=== PATIENT | male | born 1950 | race Caucasian/White ===

== ENCOUNTER 2018-04-11 09:24 | Day surgery (SDC) | payer BC ==
[2018-04-10 13:07] VITALS: BMI 30.7
--- NOTE | 2018-04-11 08:59 | CP.SDSHP ---
Same Day Surgery H & P - History Proposed Procedure: colonoscopy Pre-Op Diagnosis: Hx colonic polyps Family Hx of colon carcinoma - Previous Medical/Surgical History Cardiac: Hypertension Endocrine/Metabolic: Diabetes - Allergies Allergies: Allergies No Known Allergies Allergy (Verified 12/18/15 08:16) - Date & Time Date: 04/11/18 Time: 08:58 Short Stay Discharge - Short Stay Discharge Admitting Diagnosis/Reason for Visit: FAMILY HISTORY OF COLON CANCER, CHANGE IN [facility] Disposition: HOME/ ROUTINE
[2018-04-11] MEDS ORDERED: Lactated Ringer's 500 ML IV ONE (11:00)
[2018-04-11] MEDS ORDERED: Propofol 10 mg/ml Inj (20 ML) ONE ×2 (11:05)
[2018-04-11 12:29] VITALS: TEMP 97.3
[2018-04-11 12:36] VITALS: BP 122/75; PULSE 88; RESP 18; O2SAT 98
== END 2018-04-11 12:30 | disposition home or self-care (01) ==
LOC: C.ENDO 09:24
PROVIDERS: ATTEND Colon & Rectal Surgery
DX: Z12.11 Encounter for screening for malignant neoplasm of colon (principal); Z80.0 Family history of malignant neoplasm of digestive organs; K57.30 Diverticulosis of large intestine without perforation or abscess without bleeding; K64.8 Other hemorrhoids
CPT/HCPCS: 45378; 82948; J2001; J2704; J7120

== ENCOUNTER 2018-07-18 12:08 | Inpatient (IN) | payer BC, MEDICARE ==
[2018-07-18 12:18] VITALS: BMI 30.4
--- NOTE | 2018-07-18 12:47 | C.PDOC ---
History Of Present Illness 68 y/o M c PMHx CAD p/w chest pain that began while preparing breakfast this morning associated with diaphoresis. Denies nausea, vomiting, dyspnea. Arrived by EMS, took nitro before their arrival and was given 324 ASA by them prior to ED arrival. Time Seen by Provider: 07/18/18 12:45 Chief Complaint (Nursing): Chest Pain Past Medical History Vital Signs: Last Vital Signs Temp 98.1 F 07/18/18 12:29 Pulse 58 L 07/18/18 12:29 Resp 20 07/18/18 12:29 BP 120/71 07/18/18 12:29 Pulse Ox 95 07/18/18 12:29 - Medical History PMH: Arthritis (GOUT), Colonic Polyps, HTN, Hypercholesterolemia Denies: Chronic Kidney Disease - [employer] Procedures ENDOSC POLYPECTOMY OF LG INTEST (04/16/14) Family History: States: Unknown Family Hx - Social History Hx Alcohol Use: No Hx Substance Use: No - Immunization History Hx Tetanus Toxoid Vaccination: No Hx Influenza Vaccination: Yes Hx Pneumococcal Vaccination: Yes Review Of Systems Except As Marked, All Systems Reviewed And Found Negative. Constitutional: Negative for: Fever Respiratory: Negative for: Shortness of Breath Physical Exam - Physical Exam Additional Physical Exam Comments: Constitutional: No acute distress. Head: Normocephalic. Atraumatic. Eyes: PERRL. ENT: Moist mucous membranes. Neck: Supple. Cardiovascular: Regular rate. Radial pulse 2+ bilaterally. Chest: No tenderness. Respiratory: Clear to auscultation bilaterally. GI: Soft. Nontender. Nondistended. Back: No CVA tenderness. Musculoskeletal: No tenderness or swelling of extremities. Skin: No rash. Neurologic: Alert, no focal deficit. ED Course And Treatment - Laboratory Results Result Diagrams: 07/18/18 12:58 07/18/18 12:58 O2 Sat by Pulse Oximetry: 95 Medical Decision Making Medical Decision Making: EKG Sinus rhythm 60 bpm, no ST elevations. CXR no acute disease. Disposition - Disposition Disposition: HOSPITALIZED Disposition Time: 13:30 Condition: FAIR Forms: [email or web address] (Burmese) - POA Core Measure Indicators: Chest Pain - Clinical Impression Clinical Impression: Chest pain
[2018-07-18 13:05] LABS: BASO % 0.6 % (0.0-2.0); EOS # 0.1 K/uL (0.0-0.7); EOS % 1.5 % (0.0-4.0); LYMPH # 0.7 K/uL (1.0-4.3); LYMPH % 12.1 % (20.0-40.0); MEAN CORPUSCULAR HEMOGLOBIN 28.2 pg (27.0-31.0); MEAN CORPUSCULAR HGB CONC 33.5 g/dL (33.0-37.0); MEAN PLATELET VOLUME 8.4 fL (7.2-11.7); MONO # 0.3 K/uL (0.0-0.8); MONO % 4.8 % (0.0-10.0); NEUT # 4.5 K/uL (1.8-7.0); NRBC % 0.1 % (0.0-2.0); RBC 4.42 Mil/uL (4.40-5.90); RED CELL DISTRIBUTION WIDTH 15.8 % (11.5-14.5)
[2018-07-18 13:13] LABS: HEMOGLOBIN 12.5 g/dL (12.0-18.0); MEAN CELL VOLUME 84.2 fL (80.0-94.0); WHITE BLOOD COUNT 5.6 K/uL (4.8-10.8)
[2018-07-18 13:23] LABS: ALB/GLOB RATIO 1.6 (1.0-2.1); ALBUMIN 4.5 g/dL (3.5-5.0); ALT/SGPT 9 U/L (21-72); AST/SGOT 21 U/L (17-59); BLOOD UREA NITROGEN 26 mg/dL (9-20); CALCIUM 9.9 mg/dl (8.6-10.4); GFR NON-AFRICAN AMERICAN 51; INR 1.1; PROTHROMBIN TIME 12.5 SECONDS (9.7-12.2)
--- NOTE | 2018-07-18 15:37 | RAD ---
Date of service: 07/18/2018 HISTORY: chest pain COMPARISON: No prior. FINDINGS: LUNGS: The lungs are well inflated and clear. PLEURA: No pleural effusions or pneumothorax. CARDIOVASCULAR: There is mild cardiomegaly. No aortic atherosclerotic calcifications present. OSSEOUS STRUCTURES: Within normal limits for the patient's age. VISUALIZED UPPER ABDOMEN: Normal. OTHER FINDINGS: None. IMPRESSION: No active pulmonary disease.
--- NOTE | 2018-07-18 20:00 | CP.PCM.HP ---
Past Patient History - Past Medical History & Family History Past Medical History?: Yes - Past Social History Smoking Status: Never Smoked - CARDIAC Hx Hypercholesterolemia: Yes Hx Hypertension: Yes - PULMONARY Hx Respiratory Disorders: No - NEUROLOGICAL Hx Neurological Disorder: No - HEENT Hx HEENT Problems: No - RENAL Hx Chronic Kidney Disease: No - ENDOCRINE/METABOLIC Hx Endocrine Disorders: Yes Hx Diabetes Mellitus Type 2: Yes - HEMATOLOGICAL/ONCOLOGICAL Hx Blood Disorders: Yes Other/Comment: LOW PLATELETS - INTEGUMENTARY Hx Dermatological Problems: No - MUSCULOSKELETAL/RHEUMATOLOGICAL Hx Arthritis: Yes (GOUT) - GASTROINTESTINAL Hx Gastrointestinal Disorders: Yes - GENITOURINARY/GYNECOLOGICAL Hx Genitourinary Disorders: Yes Hx Prostate Problems: Yes (ENLARGED) - PSYCHIATRIC Hx Substance Use: No - SURGICAL HISTORY Hx Surgeries: Yes - ANESTHESIA Hx Anesthesia: Yes Hx Anesthesia Reactions: No Hx Malignant Hyperthermia: No Meds Allergies/Adverse Reactions: Allergies Allergy/AdvReac Type Severity Reaction Status Date / Time No Known Allergies Allergy Verified 07/18/18 12:15 Physical Exam - Constitutional Appears: Well - Head Exam Head Exam: ATRAUMATIC, NORMAL INSPECTION, NORMOCEPHALIC - Eye Exam Eye Exam: EOMI, Normal appearance, PERRL Pupil Exam: NORMAL ACCOMODATION, PERRL - ENT Exam ENT Exam: Mucous Membranes Moist, Normal Exam - Neck Exam Neck exam: Positive for: Normal Inspection - Respiratory Exam Respiratory Exam: Decreased Breath Sounds - Cardiovascular Exam Cardiovascular Exam: REGULAR RHYTHM, +S1, +S2 - GI/Abdominal Exam GI & Abdominal Exam: Diminished Bowel Sounds, Soft - Rectal Exam Rectal Exam: Deferred - Neurological Exam Neurological exam: Oriented x3 Results - Vital Signs Recent Vital Signs: Last Vital Signs Temp 97.6 F 07/18/18 14:45 Pulse 70 07/18/18 14:45 Resp 20 07/18/18 14:45 BP 124/73 07/18/18 14:45 Pulse Ox 100 07/18/18 16:00 - Labs Result Diagrams: 07/18/18 12:58 07/18/18 12:58 Labs: Laboratory Results - last 24 hr 07/18/18 07/18/18 07/18/18 12:58 12:58 12:58 WBC 5.6 D RBC 4.42 Hgb 12.5 D Hct 37.3 MCV 84.2 D MCH 28.2 MCHC 33.5 RDW 15.8 H Plt Count 88 L MPV 8.4 Neut % (Auto) 81.0 H Lymph % (Auto) 12.1 L [place] % (Auto) 4.8 Eos % (Auto) 1.5 Baso % (Auto) 0.6 Neut # (Auto) 4.5 Lymph # (Auto) 0.7 L [place] # (Auto) 0.3 Eos # (Auto) 0.1 Baso # (Auto) 0.0 Differential Comment PT 12.5 H INR 1.1 APTT 38 H Sodium 143 Potassium 4.9 Chloride 107 Carbon Dioxide 26 Anion Gap 14 BUN 26 H Creatinine 1.4 Est GFR ( Amer) > 60 Est GFR (Non-Af Amer) 51 POC Glucose (mg/dL) Random Glucose 189 H D Calcium 9.9 Total Bilirubin 0.3 AST 21 ALT 9 L D Alkaline Phosphatase 68 Total Creatine Kinase Troponin I < 0.0120 Total Protein 7.3 Albumin 4.5 Globulin 2.8 Albumin/Globulin Ratio 1.6 07/18/18 07/18/18 16:29 19:33 WBC RBC Hgb Hct MCV MCH MCHC RDW Plt Count MPV Neut % (Auto) Lymph % (Auto) [place] % (Auto) Eos % (Auto) Baso % (Auto) Neut # (Auto) Lymph # (Auto) [place] # (Auto) Eos # (Auto) Baso # (Auto) Differential Comment PT INR APTT Sodium Potassium Chloride Carbon Dioxide Anion Gap BUN Creatinine Est GFR ( Amer) Est GFR (Non-Af Amer) POC Glucose (mg/dL) 117 H Random Glucose Calcium Total Bilirubin AST ALT Alkaline Phosphatase Total Creatine Kinase 227 H Troponin I Total Protein Albumin Globulin Albumin/Globulin Ratio
[2018-07-18 20:13] LABS: CK-MB 19.4 ng/mL (0.0-3.38); TROPONIN I 2.57 ng/mL (0.00-0.120)
[2018-07-18] MEDS: (Novolog) Insulin Aspart, Recombinant 100 u/ml 10 ml vial SC SCH (21:49)
[2018-07-19 03:59] LABS: CK-MB 32.8 ng/mL (0.0-3.38); TROPONIN I 17.6 ng/mL (0.00-0.120)
[2018-07-19] MEDS: Enoxaparin 100 mg Syringe SC SCH ×2 (04:47→09:50)
[2018-07-19] MEDS: Metoprolol Succinate 25 mg XL Tab PO SCH ×2 (07:45→09:50)
[2018-07-19] MEDS: (Novolog) Insulin Aspart, Recombinant 100 u/ml 10 ml vial SC SCH ×4 (07:55→23:10)
[2018-07-19] MEDS: Omega-3-Acid Ethyl Esters 1 GM Cap PO SCH ×3 (09:50→18:49)
[2018-07-19] MEDS: Pantoprazole 40 mg EC Tab PO SCH (09:50)
[2018-07-19] MEDS ORDERED: Enoxaparin 40 mg Syringe SC SCH (10:00)
[2018-07-19] MEDS ORDERED: Ergocalciferol 50,000 Intl Units Cap PO SCH (10:00)
--- NOTE | 2018-07-19 10:47 | CP.PCM.CON ---
History of Present Illness - History of Present Illness History of Present Illness: Consultation for NSTEMI Mr. Kay is a 68-year-old male with past medical history significant for hypertension diabetes mellitus dyslipidemia who had recently undergone revascularization of the right coronary artery and [facility] by Dr. Edy Merritt he was scheduled to undergo a staged intervention on August 01 but yesterday he started having chest pain substernal pressure-like sensation and therefore presented to the emergency room at [facility] he was ruled in for non-ST elevation [place] acute coronary syndrome with positive cardiac enzymes and therefore was transferred over to [place] for possible catheterization and intervention cardiac catheterization revealed a ruptured plaque in the RCA and between the 2 stents that were recently placed at [place] he underwent successful angioplasty and stenting of the mid RCA he also had high-grade lesions in the left anterior descending artery in both the proximal and mid segments after discussing with the patient he wanted to proceed with endovascular ablation of the LAD which was a non-culprit vessel he successfully underwent staged intervention of the proximal and mid LAD with 2 drug-eluting stents the procedure was done via the left radial arterial approach patient was already on Brilinta and therefore did not require reloading. His home medication include Benicar 40 mg daily terazosin 2 mg daily metformin thousand again daily gemfibrozil 600 mg tablet allopurinol 300 mg a day fish oil 1200 mg / 360 mg vitamin B12 vitamin D3 aspirin 81 Lipitor atorvastatin 10 mg metoprolol succinate 50 mg nitroglycerin sublingual 0.4 as needed. Social history squeaks smoking 4 years ago prior to that had [id number] history of smoking denies any alcohol or illicit drug use family history contribute significant for premature CAD and hypertension Review of Systems - Review of Systems Systems not reviewed;Unavailable: Acuity of Condition - Constitutional Constitutional: As Per HPI - EENT Eyes: As Per HPI Ears: As Per HPI Nose/Mouth/Throat: As Per HPI - Cardiovascular Cardiovascular: As Per HPI - Respiratory Respiratory: As Per HPI - Gastrointestinal Gastrointestinal: As Per HPI - Genitourinary Genitourinary: As Per HPI - Reproductive: Male Reproductive:Male: As Per HPI - Musculoskeletal Musculoskeletal: As Per HPI - Integumentary Integumentary: As Per HPI - Neurological Neurological: As Per HPI - Psychiatric Psychiatric: As Per HPI - Endocrine Endocrine: As Per HPI - Hematologic/Lymphatic Hematologic: As Per HPI Past Patient History - Past Medical History & Family History Past Medical History?: Yes - Past Social History Smoking Status: Never Smoked - CARDIAC Hx Hypercholesterolemia: Yes Hx Hypertension: Yes - PULMONARY Hx Respiratory Disorders: No - NEUROLOGICAL Hx Neurological Disorder: No - HEENT Hx HEENT Problems: No - RENAL Hx Chronic Kidney Disease: No - ENDOCRINE/METABOLIC Hx Endocrine Disorders: Yes Hx Diabetes Mellitus Type 2: Yes - HEMATOLOGICAL/ONCOLOGICAL Hx Blood Disorders: Yes Other/Comment: LOW PLATELETS - INTEGUMENTARY Hx Dermatological Problems: No - MUSCULOSKELETAL/RHEUMATOLOGICAL Hx Arthritis: Yes (GOUT) - GASTROINTESTINAL Hx Gastrointestinal Disorders: Yes - GENITOURINARY/GYNECOLOGICAL Hx Genitourinary Disorders: Yes Hx Prostate Problems: Yes (ENLARGED) - PSYCHIATRIC Hx Substance Use: No - SURGICAL HISTORY Hx Surgeries: Yes - ANESTHESIA Hx Anesthesia: Yes Hx Anesthesia Reactions: No Hx Malignant Hyperthermia: No Meds Allergies/Adverse Reactions: Allergies Allergy/AdvReac Type Severity Reaction Status Date / Time No Known Allergies Allergy Verified 07/18/18 12:15 - Medications Medications: Current Medications Allopurinol (Zyloprim) 300 mg PO DAILY [facility] Last Admin: 07/19/18 09:49 Dose: Not Given Aspirin (Ecotrin) 81 mg PO DAILY [facility] Last Admin: 07/19/18 09:51 Dose: Not Given Cyanocobalamin (Vitamin B12 1000 Mcg Tab) 1,000 mcg PO DAILY [facility] Last Admin: 07/19/18 09:49 Dose: Not Given Enoxaparin Sodium (Lovenox) 90 mg SC Q12 [facility] Last Admin: 07/19/18 09:50 Dose: Not Given Ergocalciferol (Drisdol 50,000 Intl Units Cap) 1,000 cap PO QWK [facility] Last Admin: 07/19/18 09:51 Dose: Not Given Hydrochlorothiazide (Hydrodiuril) 25 mg PO DAILY [facility] Last Admin: 07/19/18 09:51 Dose: Not Given Insulin Aspart (Novolog) 0 unit SC ACHS [facility]; Protocol Last Admin: 07/19/18 07:55 Dose: Not Given Losartan Potassium (Cozaar) 100 mg PO DAILY [facility] Last Admin: 07/19/18 09:51 Dose: Not Given Metformin HCl (Glucophage Xr) 1,000 mg PO ACBD [facility] Last Admin: 07/19/18 07:54 Dose: Not Given Metoprolol Succinate (Toprol Xl) 25 mg PO DAILY [facility] Last Admin: 07/19/18 09:50 Dose: Not Given Nitroglycerin (Nitrostat Sl Tab) 0.4 mg SL PRN [facility] Last Admin: 07/18/18 20:29 Dose: 0.4 mg [id number] Ethyl Esters (Lovaza) 1 gm PO TID [facility] Last Admin: 07/19/18 09:50 Dose: Not Given Pantoprazole Sodium (Protonix Ec Tab) 40 mg PO DAILY [facility] Last Admin: 07/19/18 09:50 Dose: Not Given Rosuvastatin Calcium (Crestor) 5 mg PO HS [facility] Last Admin: 07/18/18 22:33 Dose: 5 mg Terazosin HCl (Hytrin) 2 mg PO DAILY [facility] Last Admin: 07/19/18 09:50 Dose: Not Given Terazosin HCl (Hytrin) 1 mg PO [facility] Ticagrelor (Brilinta) 90 mg PO BID [facility] Last Admin: 07/19/18 09:51 Dose: Not Given Physical Exam - Constitutional Appears: Well - Head Exam Head Exam: ATRAUMATIC, NORMAL INSPECTION, NORMOCEPHALIC - Eye Exam Eye Exam: EOMI, Normal appearance, PERRL Pupil Exam: NORMAL ACCOMODATION, PERRL - ENT Exam ENT Exam: Mucous Membranes Moist, Normal Exam - Neck Exam Neck exam: Positive for: Normal Inspection - Respiratory Exam Respiratory Exam: Clear to Auscultation Bilateral, NORMAL BREATHING PATTERN - Cardiovascular Exam Cardiovascular Exam: REGULAR RHYTHM - GI/Abdominal Exam GI & Abdominal Exam: Normal Bowel Sounds, Soft. absent: Tenderness - Extremities Exam Extremities exam: Positive for: normal inspection - Back Exam Back exam: NORMAL INSPECTION - Neurological Exam Neurological exam: Alert, CN II-XII Intact, Normal Gait, Oriented x3, Reflexes Normal - Psychiatric Exam Psychiatric exam: Normal Affect, Normal Mood - Skin Skin Exam: Dry, Intact, Normal Color, Warm Results - Vital Signs Recent Vital Signs: Last Vital Signs Temp 98.2 F 07/19/18 07:32 Pulse 75 07/19/18 07:32 Resp 20 07/19/18 07:32 BP 154/92 H 07/19/18 07:32 Pulse Ox 98 07/19/18 07:32 - Labs Result Diagrams: 07/18/18 12:58 07/18/18 12:58 Labs: Laboratory Results - last 24 hr 0407/18/18 07/18/18 12:58 12:58 12:58 WBC 5.6 D RBC 4.42 Hgb 12.5 D Hct 37.3 MCV 84.2 D MCH 28.2 MCHC 33.5 RDW 15.8 H Plt Count 88 L MPV 8.4 Neut % (Auto) 81.0 H Lymph % (Auto) 12.1 L [place] % (Auto) 4.8 Eos % (Auto) 1.5 Baso % (Auto) 0.6 Neut # (Auto) 4.5 Lymph # (Auto) 0.7 L [place] # (Auto) 0.3 Eos # (Auto) 0.1 Baso # (Auto) 0.0 Differential Comment PT 12.5 H INR 1.1 APTT 38 H Sodium 143 Potassium 4.9 Chloride 107 Carbon Dioxide 26 Anion Gap 14 BUN 26 H Creatinine 1.4 Est GFR ( Amer) > 60 Est GFR (Non-Af Amer) 51 POC Glucose (mg/dL) Random Glucose 189 H D Calcium 9.9 Total Bilirubin 0.3 AST 21 ALT 9 L D Alkaline Phosphatase 68 Total Creatine Kinase CK-MB (Mass) Troponin I < 0.0120 Total Protein 7.3 Albumin 4.5 Globulin 2.8 Albumin/Globulin Ratio 1.6 07/18/18 07/18/18 07/19/18 16:29 19:33 03:00 WBC RBC Hgb Hct MCV MCH MCHC RDW Plt Count MPV Neut % (Auto) Lymph % (Auto) [place] % (Auto) Eos % (Auto) Baso % (Auto) Neut # (Auto) Lymph # (Auto) [place] # (Auto) Eos # (Auto) Baso # (Auto) Differential Comment PT INR APTT Sodium Potassium Chloride Carbon Dioxide Anion Gap BUN Creatinine Est GFR ( Amer) Est GFR (Non-Af Amer) POC Glucose (mg/dL) 117 H Random Glucose Calcium Total Bilirubin AST ALT Alkaline Phosphatase Total Creatine Kinase 227 H 397 H CK-MB (Mass) 19.4 H 32.8 H Troponin I 2.5700 H* 17.6000 H* Total Protein Albumin Globulin Albumin/Globulin Ratio Assessment & Plan (1) NSTEMI (non-ST elevated myocardial infarction) Assessment and Plan: s/p cardiac cath with pci of RCA and LAD RCA PCI - mid segment with XIOMARA x 1 LAD PCI - proximal and mid LAD with XIOMARA x 2 cont asa and brilinta cont toprol xl 50mg po daily cont benicar 40mg cont lipitor ( increase dose to 80mg ) add zetia dc gemfibrizol patient can be discharged home in am PRU was 94 ( therapeutic on platelet activity ) Status: Acute (2) HTN (hypertension) Status: Acute (3) Dyslipidemia Status: Acute
--- NOTE | 2018-07-19 10:54 | CP.PCM.PN ---
Subjective - Date & Time of Evaluation Date of Evaluation: 07/19/18 - Subjective Subjective: cardiac enzyme postives getting worse seen by dr. khoury Objective - Vital Signs/Intake and Output Vital Signs (last 24 hours): Temp Pulse Resp BP Pulse Ox 98.2 F 75 20 154/92 H 98 07/19/18 07:32 07/19/18 07:32 07/19/18 07:32 07/19/18 07:32 07/19/18 07:32 - Medications Medications: Current Medications Allopurinol (Zyloprim) 300 mg PO DAILY [facility] Last Admin: 07/19/18 09:49 Dose: Not Given Aspirin (Ecotrin) 81 mg PO DAILY [facility] Last Admin: 07/19/18 09:51 Dose: Not Given Cyanocobalamin (Vitamin B12 1000 Mcg Tab) 1,000 mcg PO DAILY [facility] Last Admin: 07/19/18 09:49 Dose: Not Given Ergocalciferol (Drisdol 50,000 Intl Units Cap) 1,000 cap PO QWK [facility] Last Admin: 07/19/18 09:51 Dose: Not Given Insulin Aspart (Novolog) 0 unit SC ACHS [facility]; Protocol Last Admin: 07/19/18 07:55 Dose: Not Given Losartan Potassium (Cozaar) 100 mg PO DAILY [facility] Last Admin: 07/19/18 09:51 Dose: Not Given Metformin HCl (Glucophage Xr) 1,000 mg PO ACBD [facility] Last Admin: 07/19/18 07:54 Dose: Not Given Metoprolol Succinate (Toprol Xl) 50 mg PO DAILY [facility] Nitroglycerin (Nitrostat Sl Tab) 0.4 mg SL PRN [facility] Last Admin: 07/18/18 20:29 Dose: 0.4 mg [id number] Ethyl Esters (Lovaza) 1 gm PO TID [facility] Last Admin: 07/19/18 09:50 Dose: Not Given Pantoprazole Sodium (Protonix Ec Tab) 40 mg PO DAILY [facility] Last Admin: 07/19/18 09:50 Dose: Not Given Rosuvastatin Calcium (Crestor) 40 mg PO HS [facility] Terazosin HCl (Hytrin) 2 mg PO DAILY [facility] Last Admin: 07/19/18 09:50 Dose: Not Given Terazosin HCl (Hytrin) 1 mg PO HS [facility] Ticagrelor (Brilinta) 90 mg PO BID [facility] Last Admin: 07/19/18 09:51 Dose: Not Given - Labs Labs: 07/18/18 12:58 07/18/18 12:58 PT 12.5 SECONDS (9.7-12.2) H 07/18/18 12:58 INR 1.1 07/18/18 12:58 APTT 38 SECONDS (21-34) H 07/18/18 12:58 - Constitutional Appears: Well - Head Exam Head Exam: ATRAUMATIC, NORMAL INSPECTION, NORMOCEPHALIC - Eye Exam Eye Exam: EOMI, Normal appearance, PERRL Pupil Exam: NORMAL ACCOMODATION, PERRL - ENT Exam ENT Exam: Mucous Membranes Moist, Normal Exam - Neck Exam Neck Exam: Full ROM, Normal Inspection. absent: Lymphadenopathy - Respiratory Exam Respiratory Exam: Decreased Breath Sounds - Cardiovascular Exam Cardiovascular Exam: REGULAR RHYTHM, +S1, +S2 - GI/Abdominal Exam GI & Abdominal Exam: Soft, Diminished Bowel Sounds - Rectal Exam Rectal Exam: Deferred - Neurological Exam Neurological Exam: Oriented x3 Assessment and Plan - Assessment and Plan (Free Text) Plan: at one point patient decided to discharge today as part of dr. khoury's note written yesterday spoke to dr. khoury who claims to keep patient here today s/p patient came back from [place] after intervention done patient understood family sitting at bedside discussed about possible rupture discussed case with heart doctor medications reviewed labs reviewed vitals reviewed rory villareal ecochristiane glucophage hytrin lovaza nitrostat novolog protonix ec tab toprol xl zyloprim s/p cardiac cath with pci of RCA and LAD RCA PCI - mid segment with XIOMARA x 1 LAD PCI - proximal and mid LAD with XIOMARA x 2 cont asa and brilinta cont toprol xl 50mg po daily cont benicar 40mg cont lipitor ( increase dose to 80mg ) add zetia dc gemfibrizol patient can be discharged home in am asper dr. khoury whose note is appreciated PRU was 94 ( therapeutic on platelet activity )
[2018-07-19 20:19] LABS: CK-MB 13.2 ng/mL (0.0-3.38); TROPONIN I 6.55 ng/mL (0.00-0.120)
[2018-07-20] MEDS: (Novolog) Insulin Aspart, Recombinant 100 u/ml 10 ml vial SC SCH ×3 (07:48→21:27)
[2018-07-20] MEDS: Metoprolol Succinate 50 mg XL Tab PO SCH (10:22)
[2018-07-20] MEDS: Pantoprazole 40 mg EC Tab PO SCH (10:23)
[2018-07-20] MEDS: Omega-3-Acid Ethyl Esters 1 GM Cap PO SCH ×3 (10:23→17:36)
[2018-07-20 17:05] VITALS: RESP 20
[2018-07-21] MEDS: (Novolog) Insulin Aspart, Recombinant 100 u/ml 10 ml vial SC SCH ×4 (07:49→22:30)
[2018-07-21] MEDS: Omega-3-Acid Ethyl Esters 1 GM Cap PO SCH ×3 (10:22→18:09)
[2018-07-21] MEDS: Metoprolol Succinate 50 mg XL Tab PO SCH (10:22)
[2018-07-21] MEDS: Pantoprazole 40 mg EC Tab PO SCH (10:22)
--- NOTE | 2018-07-21 11:01 | CP.PCM.PN ---
Subjective - Date & Time of Evaluation Date of Evaluation: 07/21/18 Time of Evaluation: 10:35 - Subjective Subjective: Patient seen today denies any headache, sob, c/o chest tightness in the mid sternal area, radiated to back started 30 mintus ago and lasted for 1-2 minuts and symptoms resolved now , denies any diaphoresis , N/V associated with chest tightness vss- stable will do troponin x 1 stat and ekg and discuss with Dr. Lopes troponin trending down - 3.4<6.5<17.6 labs reviewed- stable Objective - Vital Signs/Intake and Output Vital Signs (last 24 hours): Temp Pulse Resp BP Pulse Ox 98.1 F 84 20 164/87 H 98 07/21/18 07:00 07/21/18 10:23 07/21/18 07:00 07/21/18 10:23 07/21/18 08:00 Intake and Output: 07/21/18 07/21/18 06:59 18:59 Intake Total 650 Balance 650 - Medications Medications: Current Medications Allopurinol (Zyloprim) 300 mg PO DAILY [facility] Last Admin: 07/21/18 10:21 Dose: 300 mg Aspirin (Ecotrin) 81 mg PO DAILY [facility] Last Admin: 07/21/18 10:22 Dose: 81 mg Cyanocobalamin (Vitamin B12 1000 Mcg Tab) 1,000 mcg PO DAILY [facility] Last Admin: 07/21/18 10:21 Dose: 1,000 mcg Ergocalciferol (Drisdol 50,000 Intl Units Cap) 1,000 cap PO QWK [facility] Last Admin: 07/19/18 09:51 Dose: Not Given Insulin Aspart (Novolog) 0 unit SC ACHS [facility]; Protocol Last Admin: 07/21/18 07:49 Dose: Not Given Losartan Potassium (Cozaar) 100 mg PO DAILY [facility] Last Admin: 07/21/18 10:22 Dose: 100 mg Metformin HCl (Glucophage Xr) 1,000 mg PO ACBD [facility] Last Admin: 07/21/18 08:07 Dose: Not Given Metoprolol Succinate (Toprol Xl) 50 mg PO DAILY [facility] Last Admin: 07/21/18 10:22 Dose: 50 mg Nitroglycerin (Nitrostat Sl Tab) 0.4 mg SL PRN [facility] Last Admin: 07/18/18 20:29 Dose: 0.4 mg [id number] Ethyl Esters (Lovaza) 1 gm PO TID [facility] Last Admin: 07/21/18 10:22 Dose: 1 gm Pantoprazole Sodium (Protonix Ec Tab) 40 mg PO DAILY [facility] Last Admin: 07/21/18 10:22 Dose: 40 mg Rosuvastatin Calcium (Crestor) 40 mg PO HS [facility] Last Admin: 07/20/18 21:20 Dose: 40 mg Terazosin HCl (Hytrin) 1 mg PO HS [facility] Last Admin: 07/20/18 21:20 Dose: 1 mg Terazosin HCl (Hytrin) 2 mg PO DAILY [facility] Last Admin: 07/21/18 10:22 Dose: 2 mg Ticagrelor (Brilinta) 90 mg PO BID [facility] Last Admin: 07/21/18 10:22 Dose: 90 mg - Labs Labs: 07/18/18 12:58 07/18/18 12:58 PT 12.5 SECONDS (9.7-12.2) H 07/18/18 12:58 INR 1.1 07/18/18 12:58 APTT 38 SECONDS (21-34) H 07/18/18 12:58 Assessment and Plan - Assessment and Plan (Free Text) Assessment: A/P 68-year-old male with past medical history for hypertension diabetes mellitus dyslipidemia who had recently undergone revascularization of the right coronary artery and [facility] by Dr. Edy Merritt he was scheduled to undergo a staged intervention on August 01 presented to the ED with chest pain in the substernal area associated with diaphoresis and admitted with NSTEMI and acute coronary syndrome s/p ADJUNCT FACULTY with drug eluting stent by Dr. Lopes on 07/19/18 troponin trending down -3.4<6.5<17.[address] Antoine. EKG - reviewed by Dr. Antoine cleared patient for discharge home D/w Dr. Lopes with troponin level done this am , EKG done this am and events this am about 2 minuts chest tightens recommends Dr. Sears to see the patient before discharge D/w Dr. Sears will see patient this pm plan discussed with patient in details will monitor patient on tele for 24 hrs and repeat troponin and EKG IN AM
[2018-07-21 13:38] LABS: BLOOD UREA NITROGEN 29 mg/dL (9-20); CALCIUM 9.6 mg/dl (8.6-10.4); GFR NON-AFRICAN AMERICAN 55
--- NOTE | 2018-07-21 14:50 | CP.PCM.PN ---
Subjective - Date & Time of Evaluation Date of Evaluation: 07/21/18 - Subjective Subjective: patient examined today c/o chest tightness for 2 min earlier s/p ekg which revelas no new changes d/w dr mcelroy pt for discharge today no nausea no vomiting no fever no dizziness no shortness of breath no diarrhea Objective - Vital Signs/Intake and Output Vital Signs (last 24 hours): Temp Pulse Resp BP Pulse Ox 98.1 F 84 20 164/87 H 98 07/21/18 07:00 07/21/18 10:23 07/21/18 07:00 07/21/18 10:23 07/21/18 08:00 Intake and Output: 07/21/18 07/21/18 06:59 18:59 Intake Total 650 Balance 650 - Medications Medications: Current Medications Allopurinol (Zyloprim) 300 mg PO DAILY [facility] Last Admin: 07/21/18 10:21 Dose: 300 mg Aspirin (Ecotrin) 81 mg PO DAILY [facility] Last Admin: 07/21/18 10:22 Dose: 81 mg Cyanocobalamin (Vitamin B12 1000 Mcg Tab) 1,000 mcg PO DAILY [facility] Last Admin: 07/21/18 10:21 Dose: 1,000 mcg Ergocalciferol (Drisdol 50,000 Intl Units Cap) 1,000 cap PO QWK [facility] Last Admin: 07/19/18 09:51 Dose: Not Given Insulin Aspart (Novolog) 0 unit SC [facility]; Protocol Last Admin: 07/21/18 11:21 Dose: Not Given Losartan Potassium (Cozaar) 100 mg PO DAILY [facility] Last Admin: 07/21/18 10:22 Dose: 100 mg Metformin HCl (Glucophage Xr) 1,000 mg PO ACBD [facility] Last Admin: 07/21/18 08:07 Dose: Not Given Metoprolol Succinate (Toprol Xl) 50 mg PO DAILY [facility] Last Admin: 07/21/18 10:22 Dose: 50 mg Nitroglycerin (Nitrostat Sl Tab) 0.4 mg SL PRN [facility] Last Admin: 07/18/18 20:29 Dose: 0.4 mg Alqpr-1-Jldl Ethyl Esters (Lovaza) 1 gm PO TID [facility] Last Admin: 07/21/18 14:03 Dose: 1 gm Pantoprazole Sodium (Protonix Ec Tab) 40 mg PO DAILY [facility] Last Admin: 07/21/18 10:22 Dose: 40 mg Rosuvastatin Calcium (Crestor) 40 mg PO HS [facility] Last Admin: 07/20/18 21:20 Dose: 40 mg Terazosin HCl (Hytrin) 1 mg PO HS [facility] Last Admin: 07/20/18 21:20 Dose: 1 mg Terazosin HCl (Hytrin) 2 mg PO DAILY [facility] Last Admin: 07/21/18 10:22 Dose: 2 mg Ticagrelor (Brilinta) 90 mg PO BID [facility] Last Admin: 07/21/18 10:22 Dose: 90 mg - Labs Labs: 07/18/18 12:58 07/21/18 11:25 PT 12.5 SECONDS (9.7-12.2) H 07/18/18 12:58 INR 1.1 07/18/18 12:58 APTT 38 SECONDS (21-34) H 07/18/18 12:58 - Constitutional Appears: Well - Head Exam Head Exam: ATRAUMATIC, NORMAL INSPECTION, NORMOCEPHALIC - Eye Exam Eye Exam: EOMI, Normal appearance, PERRL Pupil Exam: NORMAL ACCOMODATION, PERRL - ENT Exam ENT Exam: Mucous Membranes Moist, Normal Exam - Neck Exam Neck Exam: Full ROM, Normal Inspection. absent: Lymphadenopathy - Respiratory Exam Respiratory Exam: Decreased Breath Sounds - Cardiovascular Exam Cardiovascular Exam: REGULAR RHYTHM, +S2 - GI/Abdominal Exam GI & Abdominal Exam: Diminished Bowel Sounds - Rectal Exam Rectal Exam: Deferred - Neurological Exam Neurological Exam: Oriented x3 Assessment and Plan - Assessment and Plan (Free Text) Plan: medications reviewed vitals reviewed labs reviewed rory villareal ecochristiane glucophage hytrin lovaza nitrostat novolog protonix ec tab toprol xl zyloprim Discharge was hold as patient had recurrent chest pains status post RCA and LAD intervention done by the practice physician Strip Polisher requested another practice physician to see the patient's another practice physician evaluation is pending The EKG it does not reveal any changes Discharge post second opinion from the practice physician Medication already discussed with the staff for possible discharge I also spoke to Dr. Lopes and with pt at length earlier with the patient also pt with mod to hgih complexity of care
[2018-07-22 07:48] VITALS: BP 154/87; TEMP 98.1; O2SAT 96
[2018-07-22 07:52] VITALS: PULSE 81
--- NOTE | 2018-07-22 08:33 | CP.PCM.PN ---
Subjective - Date & Time of Evaluation Date of Evaluation: 07/21/18 Time of Evaluation: 22:10 - Subjective Subjective: Consultation requested if the patient cleared for discharge from cardiac point of view 68M s/p RCA and LAD intervention on 07/19/18 Episode of chest pain with no new EKG changes On interview patient currently denies chest pain and dyspnea Recurrent ischemia unlikely but recommend repeat Troponin and EKG in am prior to decision making for discharge Continue ASA, Brilinta, statins and B blockers Review Of Systems Except As Marked, All Systems Reviewed And Found Negative. Constitutional: Negative for: Fever Respiratory: Negative for: Shortness of Breath Physical Exam - Physical Exam Additional Physical Exam Comments: Constitutional: No acute distress. Head: Normocephalic. Atraumatic. Eyes: PERRL. ENT: Moist mucous membranes. Neck: Supple. Cardiovascular: Regular rate. Radial pulse 2+ bilaterally. Chest: No tenderness. Respiratory: Clear to auscultation bilaterally. GI: Soft. Nontender. Nondistended. Back: No CVA tenderness. Musculoskeletal: No tenderness or swelling of extremities. Skin: No rash. Neurologic: Alert, no focal deficit. Objective - Vital Signs/Intake and Output Vital Signs (last 24 hours): Temp Pulse Resp BP Pulse Ox 98.1 F 81 20 154/87 H 96 07/22/18 07:00 07/22/18 07:43 07/22/18 07:00 07/22/18 07:00 07/22/18 07:00 Intake and Output: 07/22/18 07/22/18 06:59 18:59 Intake Total 400 Balance 400 - Medications Medications: Current Medications Allopurinol (Zyloprim) 300 mg PO DAILY [facility] Last Admin: 07/21/18 10:21 Dose: 300 mg Aspirin (Ecotrin) 81 mg PO DAILY [facility] Last Admin: 07/21/18 10:22 Dose: 81 mg Cyanocobalamin (Vitamin B12 1000 Mcg Tab) 1,000 mcg PO DAILY [facility] Last Admin: 07/21/18 10:21 Dose: 1,000 mcg Ergocalciferol (Drisdol 50,000 Intl Units Cap) 1,000 cap PO QWK [facility] Last Admin: 07/19/18 09:51 Dose: Not Given Insulin Aspart (Novolog) 0 unit SC [facility]; Protocol Last Admin: 04/15/19 22:30 Dose: Not Given Losartan Potassium (Cozaar) 100 mg PO DAILY [facility] Last Admin: 07/21/18 10:22 Dose: 100 mg Metformin HCl (Glucophage Xr) 1,000 mg PO ACBD [facility] Last Admin: 07/21/18 17:30 Dose: 1,000 mg Metoprolol Succinate (Toprol Xl) 50 mg PO DAILY [facility] Last Admin: 07/21/18 10:22 Dose: 50 mg Nitroglycerin (Nitrostat Sl Tab) 0.4 mg SL PRN [facility] Last Admin: 07/18/18 20:29 Dose: 0.4 mg Qylxy-2-Hhyf Ethyl Esters (Lovaza) 1 gm PO TID [facility] Last Admin: 07/21/18 18:09 Dose: 1 gm Pantoprazole Sodium (Protonix Ec Tab) 40 mg PO DAILY [facility] Last Admin: 07/21/18 10:22 Dose: 40 mg Rosuvastatin Calcium (Crestor) 40 mg PO HS [facility] Last Admin: 07/21/18 23:04 Dose: 40 mg Terazosin HCl (Hytrin) 1 mg PO HS [facility] Last Admin: 07/21/18 23:04 Dose: 1 mg Terazosin HCl (Hytrin) 2 mg PO DAILY [facility] Last Admin: 07/21/18 10:22 Dose: 2 mg Ticagrelor (Brilinta) 90 mg PO BID [facility] Last Admin: 07/21/18 18:09 Dose: 90 mg - Labs Labs: 07/18/18 12:58 07/21/18 11:25 PT 12.5 SECONDS (9.7-12.2) H 07/18/18 12:58 INR 1.1 07/18/18 12:58 APTT 38 SECONDS (21-34) H 07/18/18 12:58 Assessment and Plan - Assessment and Plan (Free Text) Assessment: 68M s/p RCA and LAD intervention on 07/19/18 Episode of chest pain with no new EKG changes On interview patient currently denies chest pain and dyspnea Recurrent ischemia unlikely but recommend repeat Troponin and EKG in am prior to decision making for discharge Continue ASA, Brilinta, statins and B blockers
--- NOTE | 2018-07-22 10:10 | CP.PCM.DIS ---
Provider - Provider Date of Admission: 07/21/18 16:06 Attending physician: Parmjit Guajardo MD Consults: 07/18/18 19:02 Cardiology Consult Routine Comment: cardiac consult Consulting Provider: Refugio Khoury Consulting Physician: Refugio Khoury Reason for Consult: dx- chestpain 07/21/18 15:40 Cardiology Consult Routine Comment: Consulting Provider: Magdi Sears Consulting Physician: Magdi Sears Reason for Consult: f/u NSTEMI (covering for Dr. khoruy) 07/21/18 21:16 Inpatient ANALYTICAL STATISTICIAN Core Measures Referral Routine Comment: routine Physician Instructions: referral Reason For Exam: dx-chestpain Time Spent in preparation of Discharge (in minutes): 20 Diagnosis - Discharge Diagnosis (1) Chronic back pain Status: Acute (2) Dyslipidemia Status: Acute (3) HTN (hypertension) Status: Acute (4) NSTEMI (non-ST elevated myocardial infarction) Status: Acute Hospital Course - Lab Results Lab Results: Most Recent Lab Values WBC 5.6 K/uL (4.8-10.8) D 07/18/18 12:58 RBC 4.42 Mil/uL (4.40-5.90) 07/18/18 12:58 Hgb 12.5 g/dL (12.0-18.0) D 07/18/18 12:58 Hct 37.3 % (35.0-51.0) 07/18/18 12:58 MCV 84.2 fL (80.0-94.0) D 07/18/18 12:58 MCH 28.2 pg (27.0-31.0) 07/18/18 12:58 MCHC 33.5 g/dL (33.0-37.0) 07/18/18 12:58 RDW 15.8 % (11.5-14.5) H 07/18/18 12:58 Plt Count 88 K/uL (130-400) L 07/18/18 12:58 MPV 8.4 fL (7.2-11.7) 07/18/18 12:58 Neut % (Auto) 81.0 % (50.0-75.0) H 07/18/18 12:58 Lymph % (Auto) 12.1 % (20.0-40.0) L 07/18/18 12:58 Valley % (Auto) 4.8 % (0.0-10.0) 07/18/18 12:58 Eos % (Auto) 1.5 % (0.0-4.0) 07/18/18 12:58 Baso % (Auto) 0.6 % (0.0-2.0) 07/18/18 12:58 Neut # (Auto) 4.5 K/uL (1.8-7.0) 07/18/18 12:58 Lymph # (Auto) 0.7 K/uL (1.0-4.3) L 07/18/18 12:58 Valley # (Auto) 0.3 K/uL (0.0-0.8) 07/18/18 12:58 Eos # (Auto) 0.1 K/uL (0.0-0.7) 07/18/18 12:58 Baso # (Auto) 0.0 K/uL (0.0-0.2) 07/18/18 12:58 Differential Comment 07/18/18 12:58 PT 12.5 SECONDS (9.7-12.2) H 07/18/18 12:58 INR 1.1 07/18/18 12:58 APTT 38 SECONDS (21-34) H 07/18/18 12:58 Sodium 138 mmol/L (132-148) 07/21/18 11:25 Potassium 3.9 mmol/L (3.6-5.2) 07/21/18 11:25 Chloride 103 mmol/L (98-107) 07/21/18 11:25 Carbon Dioxide 24 mmol/L (22-30) 07/21/18 11:25 Anion Gap 15 (10-20) 07/21/18 11:25 BUN 29 mg/dL (9-20) H 07/21/18 11:25 Creatinine 1.3 mg/dL (0.8-1.5) 07/21/18 11:25 Est GFR ( Amer) > 60 07/21/18 11:25 Est GFR (Non-Af Amer) 55 07/21/18 11:25 POC Glucose (mg/dL) 110 mg/dL (65-110) 07/22/18 06:30 Random Glucose 175 mg/dL (75-110) H 07/21/18 11:25 Calcium 9.6 mg/dl (8.6-10.4) 07/21/18 11:25 Total Bilirubin 0.3 mg/dL (0.2-1.3) 07/18/18 12:58 AST 21 U/L (17-59) 07/18/18 12:58 ALT 9 U/L (21-72) L D 07/18/18 12:58 Alkaline Phosphatase 68 U/L (38-126) 07/18/18 12:58 Total Creatine Kinase 242 U/L (55-170) H 07/19/18 19:29 CK-MB (Mass) 13.2 ng/mL (0.0-3.38) H 07/19/18 19:29 Troponin I 2.6200 ng/mL (0.00-0.120) H* 07/22/18 07:49 Total Protein 7.3 g/dL (6.3-8.3) 07/18/18 12:58 Albumin 4.5 g/dL (3.5-5.0) 07/18/18 12:58 Globulin 2.8 gm/dL (2.2-3.9) 07/18/18 12:58 Albumin/Globulin Ratio 1.6 (1.0-2.1) 07/18/18 12:58 - Hospital Course Hospital Course: Patient underwent cath especially after the [place] patient's made aware about the reports seen by Dr. Calderon and Dr. 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 patient to be discharged on aspirin Brilinta atorvastatin and beta-jass patient has no more chest pain patient's made aware that he is very vital and important to follow-up with the primary doctor as well as school office assistant and it is very very important also to see them JENNIFER patient understood prescriptions given eventually patient was discharged medications reviewed with the patient's including aspirin Brilinta beta-jass and anticholesterol medications patient advised to come back if there is any more chest pains Discharge Exam - Head Exam Head Exam: ATRAUMATIC, NORMAL INSPECTION, NORMOCEPHALIC - Eye Exam Eye Exam: EOMI, Normal appearance, PERRL Pupil Exam: NORMAL ACCOMODATION, PERRL - Respiratory Exam Respiratory Exam: Decreased Breath Sounds - Cardiovascular Exam Cardiovascular Exam: REGULAR RHYTHM, +S1, +S2 - GI/Abdominal Exam GI & Abdominal Exam: Diminished Bowel Sounds, Soft - Rectal Exam Rectal Exam: Deferred - Neurological Exam Neurological exam: Oriented x3 Discharge Plan - Discharge Medications Prescriptions: Aspirin [Adult Low Dose Aspirin EC] 81 mg PO DAILY #30 tablet. Ticagrelor [Brilinta] 90 mg PO BID #60 tab Atorvastatin [Lipitor] 80 mg PO HS #30 tab Metoprolol Succinate XL [Toprol XL] 50 mg PO DAILY #30 tab - Follow Up Plan Condition: FAIR Disposition: HOME/ ROUTINE Instructions: Low Cholesterol, Saturated Fat, and Trans Fat Diet , Heart Attack (DC), Chest Pain (DC), Ticagrelor, Low Salt Diet, Aspirin, Atorvastatin, Metoprolol, Hypertension (GEN), Back Pain (GEN) Additional Instructions: Please f/u with PMD OFFICE IN 1 WEEK PLEASE F/U WITH DR. KHOURY OFFICE IN 1 WEEK - CALL AND MAKE [phone] PLEASE CONTINUE MEDICATION PER MED. REC. Referrals: Refugio Khoury MD [Staff Provider] - Grace Guajardo MD [Staff Provider] -
[2018-07-22] MEDS: Omega-3-Acid Ethyl Esters 1 GM Cap PO SCH (10:18)
[2018-07-22] MEDS: Metoprolol Succinate 50 mg XL Tab PO SCH (10:18)
[2018-07-22] MEDS: Pantoprazole 40 mg EC Tab PO SCH (10:18)
[2018-07-22] MEDS: (Novolog) Insulin Aspart, Recombinant 100 u/ml 10 ml vial SC SCH ×2 (10:20→12:40)
--- NOTE | 2018-07-22 10:38 | CP.PCM.PN ---
Subjective - Date & Time of Evaluation Date of Evaluation: 07/22/18 Time of Evaluation: 10:30 - Subjective Subjective: Patient seen today denies any chest pain, sob, dizziness, No overnight events recorded on monitor troponin - trending down - 2.6 today from 3.4 EKG done today- reviewed no acute changes from previous EKG D/w Dr. Sears, with troponin level this am and EKG, cleared for discharge from cardiology standpoint and f/u with Dr. Lopes office , continue brilinta, aspirin and all other medications. Discussed with patient CONTINUE TO TAKE ASPIRIN AND BRILINTA AND DO NOT STOP TAKING UNLESS INSTRUCTED BY YOUR LEAD [employer] Patient instructed to returns to ED if symptoms returns Objective - Vital Signs/Intake and Output Vital Signs (last 24 hours): Temp Pulse Resp BP Pulse Ox 98.1 F 81 20 154/87 H 96 07/22/18 07:00 07/22/18 07:43 07/22/18 07:00 07/22/18 07:00 07/22/18 07:00 Intake and Output: 07/22/18 07/22/18 06:59 18:59 Intake Total 400 Balance 400 - Medications Medications: Current Medications Allopurinol (Zyloprim) 300 mg PO DAILY [facility] Last Admin: 07/21/18 10:21 Dose: 300 mg Aspirin (Ecotrin) 81 mg PO DAILY [facility] Last Admin: 07/21/18 10:22 Dose: 81 mg Cyanocobalamin (Vitamin B12 1000 Mcg Tab) 1,000 mcg PO DAILY [facility] Last Admin: 07/21/18 10:21 Dose: 1,000 mcg Ergocalciferol (Drisdol 50,000 Intl Units Cap) 1,000 cap PO QWK [facility] Last Admin: 07/19/18 09:51 Dose: Not Given Insulin Aspart (Novolog) 0 unit SC [facility]; Protocol Last Admin: 07/21/18 22:30 Dose: Not Given Losartan Potassium (Cozaar) 100 mg PO DAILY [facility] Last Admin: 07/21/18 10:22 Dose: 100 mg Metformin HCl (Glucophage Xr) 1,000 mg PO ACBD [facility] Last Admin: 07/21/18 17:30 Dose: 1,000 mg Metoprolol Succinate (Toprol Xl) 50 mg PO DAILY [facility] Last Admin: 07/21/18 10:22 Dose: 50 mg Nitroglycerin (Nitrostat Sl Tab) 0.4 mg SL PRN [facility] Last Admin: 07/18/18 20:29 Dose: 0.4 mg Qnvgb-0-Cdpo Ethyl Esters (Lovaza) 1 gm PO TID [facility] Last Admin: 07/21/18 18:09 Dose: 1 gm Pantoprazole Sodium (Protonix Ec Tab) 40 mg PO DAILY [facility] Last Admin: 07/21/18 10:22 Dose: 40 mg Pneumococcal Polyvalent Vaccine (Pneumovax 23 Vaccine) 0.5 ml IM .ONCE ONE Stop: 07/23/18 10:01 Rosuvastatin Calcium (Crestor) 40 mg PO HS [facility] Last Admin: 07/21/18 23:04 Dose: 40 mg Terazosin HCl (Hytrin) 1 mg PO [facility] Last Admin: 07/21/18 23:04 Dose: 1 mg Terazosin HCl (Hytrin) 2 mg PO DAILY [facility] Last Admin: 07/21/18 10:22 Dose: 2 mg Ticagrelor (Brilinta) 90 mg PO BID [facility] Last Admin: 07/21/18 18:09 Dose: 90 mg - Labs Labs: 07/18/18 12:58 07/21/18 11:25 PT 12.5 SECONDS (9.7-12.2) H 07/18/18 12:58 INR 1.1 07/18/18 12:58 APTT 38 SECONDS (21-34) H 07/18/18 12:58
--- NOTE | 2018-07-22 15:36 | CARD ---
APPROVED REPORT Date of service: 07/18/2018 EKG Measurement Heart [id number] <Conclusion> Sinus bradycardia Left axis deviation Abnormal ECG
--- NOTE | 2018-07-22 20:35 | CARD ---
APPROVED REPORT Date of service: 07/21/2018 EKG Measurement Heart [id number] <Conclusion> Normal sinus rhythm Left axis deviation Inferior infarct, age undetermined T wave abnormality, consider lateral ischemia Abnormal ECG
[2018-07-23] MEDS ORDERED: Pneumococcal 23-Valent Vaccine IM ONE (10:00)
--- NOTE | 2018-07-24 14:10 | CARD ---
APPROVED REPORT Date of service: 07/22/2018 EKG Measurement Heart [id number] [place] [id number] <Conclusion> Normal sinus rhythm Left axis deviation Inferior infarct, age undetermined Abnormal ECG
== END 2018-07-22 14:15 | disposition home or self-care (01) | DRG 247 ==
LOC: C.ER 12:08 → C.6T 14:03 → OBSVTOIN 07-21 16:06
PROVIDERS: ADMIT Internal Medicine Nephrology; ATTEND Internal Medicine Nephrology
PROC: 027236Z Dilation of Coronary Artery, Three Arteries with Three Drug-eluting Intraluminal Devices, Percutaneous Approach (ICD-10-PCS; principal; 2018-07-19)
PROC: 4A023N7 Measurement of Cardiac Sampling and Pressure, Left Heart, Percutaneous Approach (ICD-10-PCS; 2018-07-19)
PROC: B2111ZZ Fluoroscopy of Multiple Coronary Arteries using Low Osmolar Contrast (ICD-10-PCS; 2018-07-19)
PROC: B2151ZZ Fluoroscopy of Left Heart using Low Osmolar Contrast (ICD-10-PCS; 2018-07-19)
DX: I21.4 Non-ST elevation (NSTEMI) myocardial infarction (principal); E78.00 Pure hypercholesterolemia, unspecified; I10 Essential (primary) hypertension; I25.10 Atherosclerotic heart disease of native coronary artery without angina pectoris; E11.9 Type 2 diabetes mellitus without complications